=== PATIENT | female | born 1975 | race Caucasian/White ===

== ENCOUNTER 2017-07-06 08:10 | Emergency (ER) | payer OTHER ==
[~2017-07-06] VITALS: Ht 154.9 cm; Wt 94.1 kg
[~2017-07-06 08:10] MED LIST: ALBU0.08 INH; DEXT-119 PO; PRD10 PO; XPNIN PO
[2017-07-06 08:17] VITALS: TEMP 37.2; Ht 154.9 cm; Wt 94.1 kg
[2017-07-06] MEDS ORDERED: DEXTCAP PO (08:38)
[2017-07-06] MEDS ORDERED: PSEU30TA20 PO (08:38)
[2017-07-06] MEDS ORDERED: ALBUT/IPRATROP 3MG/0.5MG NEB 3 ML VIAL INH STA (08:47)
--- NOTE | 2017-07-06 08:51 | EMERGENCY ROOM VISIT NOTE ---
History Report prepared by David: Moy Hooper Under the Supervision of: Dr. Julita Detnon M.D. First contact with patient: 08:33 Chief Complaint: COUGH Stated Complaint: COUGH,EYES SWOLLEN,EAR ACHE Nursing Triage Summary: cough and congestion History of Present Illness The patient is a 42 year old female who presents to the Emergency Room with complaints of an intermittent cough beginning last week. The patient states that she thinks she has pink eye since her eyes were swollen and crusty when she woke up this morning. She denies any symptoms of a fever or sore throat. She notes that she has a history of asthma and does not smoke cigarettes. She reports that her son currently has a cold at home. Source of History: patient Onset: last week Position: chest Quality: other (cough) Timing: intermittent Associated Symptoms: No fevers Note: she also complains of swollen and crusty eyes. she denies any sore throat symptoms Review of Systems See HPI for pertinent positives & negatives. A total of 10 systems reviewed and were otherwise negative. Past Medical & Surgical Medical Problems: (1) Anxiety (2) Asthma (3) Chronic anemia (4) Obesity (BMI 30-39.9) Surgical Problems: (1) History of dental surgery (2) S/P appendectomy (3) S/P tonsillectomy Family History Asthma FATHER Diabetes mellitus FH: heart disease FATHER Hypertension MOTHER GRANDMOTHER Kidney disease Kidney stones Social History Smoking Status: Never Smoker Alcohol Use: none Drug Use: none Marital Status: Occupation Status: employed Current/Historical Medications Scheduled Albuterol Hfa (Ventolin Hfa), 2 PUFFS INH Q6H Amoxicillin & Pot Clavulanate (Augmentin 875-125 mg), 875 MG PO BID Erythromycin Opth (Erythromycin Opth), 1 APPLN OPB TID Prednisone (Prednisone), 40 MG PO DAILY Pseudoephedrine (Sudafed), 30 MG PO DAILY Scheduled PRN Dextromethorphan-Phenylephrine (Daytime Multi-Symptom Col), 2 CAP PO Q8 PRN for Cough Allergies Coded Allergies: No Known Allergies (Unverified , 07/06/17) Physical Exam Vital Signs Date Time Temp Pulse Resp B/P (MAP) Pulse Ox O2 Delivery O2 Flow Rate FiO2 07/06/17 09:58 100 20 188/110 98 07/06/17 08:20 98 Room Air 07/06/17 08:17 37.2 100 20 195/112 98 Room Air Physical Exam Vital signs reviewed. General: Well-appearing, in no significant distress. HEENT: No scleral icterus, PERRLA, neck supple. Atraumatic. Swelling of periorbital region bilaterally. Deformed left ear (chronic), normal canal R, bulging right TM, mild erythema, posterior oropharynx clear. Cardiovascular: Regular rate and rhythm, no extra sounds. Pulmonary: Wheezing throughout lung [place] bilaterally with a dry cough. Increased WOB Abdomen: Soft, nontender, nondistended, positive bowel sounds. Musculoskeletal: Atraumatic, no peripheral edema. Neurologic: Patient awake alert and oriented x 3, full strength in all 4 extremities. Cranial nerves 2 through 12 grossly intact. Skin: Warm, dry, no rash Medical Decision & Procedures ER Provider Diagnostic Interpretation: Radiology results as stated below per my review and radiologist interpretation: CHEST ONE VIEW PORTABLE FINDINGS: The cardiac and mediastinal contours are normal. There is no evidence of focal pulmonary consolidation. There is no evidence of failure. No pleural effusions are visualized.[ IMPRESSION: No active disease in the chest. Electronically signed by: Victor Hugo Barragan M.D. 07/06/2017 8:59 AM Medications Administered Medications (Trade) Dose Ordered Sig/Maryann Route Start Time Stop Time Status Last Admin Dose Admin Albuterol/ Ipratropium (Duoneb) 3 ml NOW STAT INH 07/06/17 08:47 07/06/17 08:49 DC 07/06/17 08:55 3 ML Prednisone (PredniSONE TAB) 60 mg NOW STAT PO 07/06/17 08:47 07/06/17 08:49 DC 07/06/17 08:54 60 MG Amoxicillin/ Clavulanate Potassium (Augmentin Tab) 875 mg ONE ONCE PO 07/06/17 09:00 07/06/17 09:01 DC 07/06/17 08:54 875 MG Erythromycin (Erythromycin Oph Oint) 1 appln NOW ONCE OPB 07/06/17 09:00 07/06/17 09:01 DC 07/06/17 08:55 1 APPLN ED Course 0838: Past medical records reviewed. The patient was evaluated in room B12. A complete history and physical examination was performed. 0847: Duoneb 3ml INH, Prednisone 60mg PO 0900: Erythromycin 1ppln OPB, Augmentin Tab 875mg PO 1007: Upon reevaluation, the patient appeared to have improvement of her symptoms. I discussed findings with her. She verbalized agreement of the treatment plan. The patient was discharged home. Medical Decision Differential diagnosis: Etiologies such as infections, reactive airway disease, pneumonia, pneumothorax , COPD, CHF, cardiac ischemia, pulmonary embolism, musculoskeletal, gastrointestinal, as well as others were entertained. This pt was evaluated and appeared to be in no distress. IV access was obtained and lab work was drawn. 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 She was given prednisone 60 mg po and a duoneb treatment. CXR is clear. Pt was given augmentin 875mg in ED and a Rx for 7 day course. She was placed on prednisone 40 mg daily for 4 more days and given an albuterol inhaler. Pt will f /u with PCP this week for reevaluation. She will return to the ED for worsening of symptoms or any medical concerns. Medication Reconcilliation Current Medication List: was personally reviewed by me Blood Pressure Screening Patient's blood pressure: Elevated blood pressure Blood pressure disposition: Referred to PCP Impression Primary Impression: Asthma exacerbation Additional Impressions: Upper respiratory infection Right otitis media Conjunctivitis of left eye Scribe Attestation The scribe's documentation has been prepared under my direction and personally reviewed by me in its entirety. I confirm that the note above accurately reflects all work, treatment, procedures, and medical decision making performed by me. Departure Information Dispostion Home / Self-Care Prescriptions Erythromycin Opth (ERYTHROMYCIN OPTH) 12 Appln/3.5 Gm Oint 1 APPLN OPB TID for 7 Days, #1 TUBE Prov: Julita Denton M.D. 07/06/17 Amoxicillin & Pot Clavulanate (Augmentin 875-125 mg) 1 Tab Tab 875 MG PO BID for 10 Days, #20 TAB Prov: Julita Denton M.D. 07/06/17 Albuterol Hfa (VENTOLIN HFA) 200 Puffs/78863 Mcg Aers 2 PUFFS INH Q6H, #1 INHALER Prov: Julita Denton M.D. 07/06/17 Prednisone (Prednisone) 20 Mg Tab 40 MG PO DAILY, #8 TAB Prov: Julita Denton M.D. 07/06/17 Referrals No Doctor, Assigned (PCP) Forms HOME CARE DOCUMENTATION FORM, IMPORTANT VISIT INFORMATION Patient Instructions My [facility] Additional Instructions Diagnosis: Asthma exacerbation, upper respiratory illness, right otitis media, conjunctivitis of the left eye STOP YOUR COUGH MEDICATIONS. NO SUDAFED. Have BP checked in 2-3 days by PCP. Prednisone 40 mg daily for 4 more days. Albuterol inhaler 2 puffs every 4 hours as needed for wheezing or cough. Augmentin 875 mg twice daily for 10 days. Erythromycin ophthalmic 1 application into each eye 3 times daily for 7 days. Follow-up with your physician this week for reevaluation. Return to the ER for worsening of symptoms or any medical concerns. Problem Qualifiers
[2017-07-06] MEDS ORDERED: AMOXICILLIN/CLAVULANATE TAB 875 MG TAB PO ONE (09:00)
[2017-07-06] MEDS ORDERED: ERYTHROMYCIN OP OINT 5 MG/GM 3.5 GM TUBE OPB ONE (09:00)
--- NOTE | 2017-07-06 09:00 | DIAGNOSTIC IMAGING REPORT ---
CHEST ONE VIEW PORTABLE CLINICAL HISTORY: asthma COMPARISON STUDY: 04/01/2015 FINDINGS: The cardiac and mediastinal contours are normal. There is no evidence of focal pulmonary consolidation. There is no evidence of failure. No pleural effusions are visualized.[ IMPRESSION: No active disease in the chest. Electronically signed by: Victor Hugo Barragan M.D. 07/06/2017 8:59 AM Dictated Date/Time: 07/06/2017 8:59 AM
[2017-07-06 09:58] VITALS: BP 188/110; PULSE 100; O2SAT 98
[2017-07-06] MEDS ORDERED: VNTHFA/IN INH (09:58)
[2017-07-06] MEDS ORDERED: ERYOPO OPB (09:58)
[2017-07-06] MEDS ORDERED: AMOX875T PO (09:58)
[2017-07-06] MEDS ORDERED: PRED20TA PO (09:58)
== END 2017-07-06 10:07 | disposition home or self-care (01) ==
LOC: C.EDB 08:11
DX: J45.901 Unspecified asthma with (acute) exacerbation (principal); H66.91 Otitis media, unspecified, right ear; H10.9 Unspecified conjunctivitis; F41.9 Anxiety disorder, unspecified; D64.9 Anemia, unspecified; E66.9 Obesity, unspecified; Z68.39 Body mass index [BMI] 39.0-39.9, adult; Z82.5 Family history of asthma and other chronic lower respiratory diseases; Z83.3 Family history of diabetes mellitus; Z82.49 Family history of ischemic heart disease and other diseases of the circulatory system; Z84.1 Family history of disorders of kidney and ureter; Z79.899 Other long term (current) drug therapy